=== PATIENT | male | born 1980 | race Caucasian/White ===

== ENCOUNTER → 2020-07-20 | Outpatient (CLI) | payer OTHER ==
[2020-07-20 16:54] LABS: BASO # 0.1 (0.02-0.10); EOS # 0.3 (0.04-0.40); EOS % 3.6 % (0.0-4.0); HEMATOCRIT 47.3 % (42.0-52.0); HEMOGLOBIN 16.2 g/dL (13.5-18.0); LYMPH# 2.9 (1.50-4.00); MEAN CELL VOLUME 87 fl (78-100); MEAN CORPUSCULAR HEMOGLOBIN 30 pg (27-31); MEAN CORPUSCULAR HGB CONC 34 g/dL (33-37); MEAN PLATELET VOLUME 9.2 fl (7.4-10.4); MONO # 0.8 (0.20-0.80); NEU # 3.8 (1.40-6.50); PLATELET COUNT 317 K/mm3 (130-400); RED BLOOD COUNT 5.46 M/mm3 (4.20-5.60); RED CELL DISTRIBUTION WIDTH 12.5 % (11.5-14.5); WHITE BLOOD COUNT 7.8 K/mm3 (4.8-10.8)
[2020-07-20 17:04] LABS: ALBUMIN 4.5 g/dL (3.5-5.0); POTASSIUM 4.1 mmol/L (3.5-5.1)
[2020-07-20 17:05] LABS: CALCIUM 9.6 mg/dL (8.3-10.5)
[2020-07-20 17:06] LABS: TOTAL PROTEIN 8.1 g/dL (6.4-8.3)
[2020-07-20 17:08] LABS: TOTAL BILIRUBIN 0.4 mg/dL (0.2-1.2)
[2020-07-22 11:23] LABS: SYPHILIS AB SCREEN w REFLEX Negative (Negative)
[2020-07-24 06:56] LABS: HERPES SIMPLEX TYPE 1 IGG >62.20 Index (()); HERPES SIMPLEX TYPE 1 IGG INTP Positive (Negative)
== END ==
LOC: LAB 16:35
PROVIDERS: Physician Assistant
DX: Z76.89 Persons encountering health services in other specified circumstances (principal); Z20.2 Contact with and (suspected) exposure to infections with a predominantly sexual mode of transmission; N50.819 Testicular pain, unspecified; F41.9 Anxiety disorder, unspecified; M25.522 Pain in left elbow; M54.2 Cervicalgia; E78.5 Hyperlipidemia, unspecified; Z20.828 Contact with and (suspected) exposure to other viral communicable diseases

== ENCOUNTER → 2020-07-30 | Outpatient (CLI) | payer OTHER | LOC: RAD 14:41 | DX: I86.1 Scrotal varices (principal) ==

== ENCOUNTER → 2020-08-06 | Outpatient (CLI) | payer OTHER ==
[2020-08-06 07:50] LABS: ALBUMIN 4.4 g/dL (3.5-5.0)
[2020-08-06 07:53] LABS: TOTAL PROTEIN 7.4 g/dL (6.4-8.3)
[2020-08-06 07:54] LABS: TOTAL BILIRUBIN 0.7 mg/dL (0.2-1.2)
[2020-08-06 07:58] LABS: DIRECT BILIRUBIN 0.2 mg/dL (0.0-0.5)
[2020-08-06 16:10] LABS: HEPATITIS C ANTIBODY Negative (Negative)
== END ==
LOC: LAB 07:04
PROVIDERS: Physician Assistant
DX: E78.2 Mixed hyperlipidemia (principal); R74.8 Abnormal levels of other serum enzymes

== ENCOUNTER → 2021-05-22 | Outpatient (CLI) | payer OTHER | LOC: LAB 11:26 | DX: Z20.822 Contact with and (suspected) exposure to COVID-19 (principal) ==